=== PATIENT | female | born 1935 | race Caucasian/White ===

== ENCOUNTER → 2018-01-31 | Outpatient (CLI) | payer MEDICARE, OTHER | END | disposition home or self-care (01) | LOC: CFH 08:55 | PROVIDERS: ATTEND Internal Medicine Cardiovascular Disease | DX: I08.0 Rheumatic disorders of both mitral and aortic valves (principal); I10 Essential (primary) hypertension; E11.9 Type 2 diabetes mellitus without complications | CPT/HCPCS: 93306 ==

== ENCOUNTER 2019-02-16 09:16 | Outpatient (CLI) | payer MEDICARE, OTHER ==
[2019-02-27] MEDS ORDERED: AMLO2.5T5 PO (14:57)
[2019-02-27] MEDS ORDERED: BANABA LEAF (14:57)
[2019-02-27] MEDS ORDERED: LEVO112T2 PO (14:57)
[2019-02-27] MEDS ORDERED: CALC1CAP8 PO (14:57)
[2019-02-27] MEDS ORDERED: BENA20TA54 PO (14:57)
[2019-02-27] MEDS ORDERED: CYAN500T54 PO (14:57)
[2019-03-01] MEDS ORDERED: ACET325T26 PO (08:29)
== END 2019-02-16 23:59 | disposition home or self-care (01) ==
LOC: CFH 09:16
PROVIDERS: ATTEND Internal Medicine Cardiovascular Disease
DX: E11.9 Type 2 diabetes mellitus without complications (principal); E78.2 Mixed hyperlipidemia; I10 Essential (primary) hypertension; I20.9 Angina pectoris, unspecified; I34.0 Nonrheumatic mitral (valve) insufficiency; I49.49 Other premature depolarization; R00.2 Palpitations; R94.31 Abnormal electrocardiogram [ECG] [EKG]
CPT/HCPCS: 36415; 71046; 80074